=== PATIENT | male | born 1950 | race Caucasian/White ===

== ENCOUNTER → 2022-09-03 | Outpatient (CLI) | payer MEDICARE, SELFPAY ==
--- NOTE | 2022-09-03 | IMM_PTH ---
PATIENT: JONAS SUAREZ LOC: [facility] U#:[id number] AGE/SX: 72/M ROOM: RE09/03/[address]: Dr. Ramirez Mckeon MD : 1950 BED: DIS: 09/03/2022 SPEC #: [id number] RECD: 09/05/22 13:20 STATUS: ZAY RESharad #: [id number] MÓNICA: 09/03/22 00:[address]: Ramirez Mckeon DEPT: IMMUNOHISTOCHEMISTRY RECD BY: Isha Cristina Tissues: A - PROSTATE RIGHT Procedures: P40 (add) 34BE12 (initial) PHYSICIAN & INSTITUTION [place] [id number] SPECIMEN INFORMATION: Tissue Source: A - Right prostate, apex, core biopsy Clinical Info: Elevated PSA Specimen Number: [id number] CPT code: 94504, 50115 METHODOLOGY: Deparaffinized sections of prefer/formalin-fixed tissue or PAP/DQ stained slides are incubated with monoclonal/polyclonal antibodies/oligonucleotide probes. Localization is made via biotin free immunoperoxidase method. Appropriate controls are performed and reacted as expected. Results on target cell population are indicated in the following table: RESULTS: ANTIBODY / CLONE RESULT Block A P40 (BC28) negative 34BE12 (34BE12) negative These tests were developed and their performance characteristics determined by [facility]. They may not have been cleared or approved by the U.S. Food and Drug Administration. The FDA has determined that such clearance or approval is not necessary. The above immunohistochemical/dualISH markers are ordered and reviewed by the Pathologist. INTERPRETATION: A. Right prostate, apex, core biopsy: Adenocarcinoma. LAZARO:maria t 09/06/2022
--- NOTE | 2022-09-03 08:00 | PROSBIL_PTH ---
PATIENT: JONAS SUAREZ LOC: [facility] U#:[id number] AGE/SX: 72/M ROOM: RE09/03/[address]: Dr. Ramirez Mckeon MD : 1950 BED: DIS: 09/03/2022 SPEC #: [id number] RECD: 09/03/22 16:25 STATUS: ZAY ANNE-MARIE #: [id number] MÓNICA: 09/03/22 08:[address]: Ramirez Mckeon DEPT: SURGICAL PATHOLOGY RECD BY: Lulu Frias Tissues: A - PROSTATE RIGHT B - PROSTATE RIGHT C - PROSTATE RIGHT D - PROSTATE LEFT E - PROSTATE LEFT F - PROSTATE LEFT Procedures: PROSTATE BX HEADER OPERATION: Prostate biopsy PRE-OP DIAGNOSIS: Elevated PSA TISSUE SUBMITTED: A - Right apex, B - Right mid, C - Right base, D - Left apex, E - Left mid, F - Left base MICROSCOPIC DIAGNOSIS A. Right prostate, apex, core biopsy: Prostatic adenocarcinoma. Paragon grade: 4+4=8 Number of cores involved: 1/1 Proportion of tissue involved: ~60% Perineural invasion: Not identified. Greatest tumor length: 0.8 cm See comment. B. Right prostate, mid, core biopsy: Prostatic adenocarcinoma. Paragon grade: 5+4=9 Number of cores involved: 1/1 Proportion of tissue involved: >95% Perineural invasion: Not identified. Greatest tumor length: 1 cm See comment. C. Right prostate, base, core biopsy: Prostatic adenocarcinoma. Mitchell grade: 3+4=7 Number of cores involved: 1/1 Proportion of tissue involved: >95% Perineural invasion: Not identified. Greatest tumor length: 1.2 cm D. Left prostate, apex, core biopsy: Prostatic tissue, negative for malignancy. E. Left prostate, mid, core biopsy: Prostatic tissue, negative for malignancy. F. Left prostate, base, core biopsy: Prostatic tissue, negative for malignancy. Focal mild chronic inflammation. SJ:maria t 09/05/2022 COMMENT A. Immunohistochemistry ([id number]) supports the above diagnosis. B. Tertiary pattern 3 is also noted. Case has been reviewed in consultation with Dr. Giron who concurs with the above diagnosis. IDC:AM MICROSCOPIC DESCRIPTION Slides are reviewed. GROSS DESCRIPTION A - Received is one container designated prostate, right apex. The specimen consists of one elongated fragment of light price-white soft tissue measuring 1.5 cm in length and 0.1 cm in diameter. The specimen is totally submitted in one cassette. B - Received is one container designated prostate, right mid. The specimen consists of one elongated fragment of light price-white soft tissue measuring 1.5 cm in length and 0.1 cm in diameter. The specimen is totally submitted in one cassette. C - Received is one container designated prostate, right base. The specimen consists of one elongated fragment of light price-white soft tissue measuring 1.5 cm in length and 0.1 cm in diameter. The specimen is totally submitted in one cassette. D - Received is one container designated prostate, left apex. The specimen consists of one elongated fragment of light price-white soft tissue measuring 1.5 cm in length and 0.1 cm in diameter. The specimen is totally submitted in one cassette. E - Received is one container designated prostate, left mid. The specimen consists of one elongated fragment of light price-white soft tissue measuring 1.5 cm in length and 0.1 cm in diameter. The specimen is totally submitted in one cassette. F - Received is one container designated prostate, left base. The specimen consists of one elongated fragment of light price-white soft tissue measuring 1.5 cm in length and 0.1 cm in diameter. The specimen is totally submitted in one cassette. / AM:maria t 09/04/2022 TC:0 CPT: G0146
== END | disposition home or self-care (01) ==
PROVIDERS: Visit Provider Urology
DX: C61 Malignant neoplasm of prostate (principal)
CPT/HCPCS: 88305; 88341; 88342; G0416

== ENCOUNTER → 2022-10-02 | Outpatient (CLI) | payer MEDICARE, SELFPAY ==
--- NOTE | 2022-10-02 09:30 | NM_ITS ---
CLINICAL: 72-year-old male with history of carcinoma of the prostate. WHOLE BODY 99m Tc MDP RADIONUCLIDE BONE SCINTIGRAPHY COMPARISON: None available FINDINGS: Following the intravenous administration of 25.0 mCi of 99m Tc MDP, whole body bone images reveal: 1. Increased radiopharmaceutical concentration is defined in the acromioclavicular and sternoclavicular compartments of both shoulders, the knees bilaterally, the right midfoot, the right ankle, the third and fifth lumbar vertebra both anteriorly and posteriorly on the left and right respectively. 2. The remaining skeletal structures are scintigraphically unremarkable with normal-appearing renal images and urinary bladder activity identified. NM/Bone Scan Whole Body IMPRESSION: 1. The increase in tracer concentration identified in the bilateral shoulder and knees, the right midfoot, the right ankle, the lumbar spine is commensurate with degenerative arthritis. 2. There is no definitive scintigraphic evidence of diffuse axial skeletal metastatic disease. Electronically Signed: Billy Blas, at 23:10 EST ,
== END | disposition home or self-care (01) ==
LOC: NM 09:28
PROVIDERS: PCP Student in an Organized Health Care Education/Training Program; Referring Provider Urology; Visit Provider Urology
DX: C61 Malignant neoplasm of prostate (principal)
CPT/HCPCS: 78306; A9503

== ENCOUNTER 2022-10-30 09:29 | Day surgery (SDC) | payer MEDICARE, SELFPAY ==
[2022-10-30] VITALS (7 sets, daily range): BP systolic 110–144; BP diastolic 66–75; PULSE 58–70; RESP 14–16; TEMP 36.3–36.4; O2SAT 95–98; BMI 25.2
[2022-10-30] MEDS: Lactated Ringers 1,000 ML 15 ML IV (09:55)
[2022-10-30] MEDS: Cefazolin 2 GM in 0.9% Normal Saline 100 ML IV (11:37)
--- NOTE | 2022-10-30 11:42 | HP.PCM_ITS ---
HPI - General HPI Narrative JONAS SUAREZ, is a 72 M who presents for placement of gold markers and spacer gel for treatment for prostate cancer PFSH Medical History Abnormal transrectal ultrasound of prostate Allergic rhinitis Anxiety Arthritis Back pain Bipolar disorder Blackout Blood type A+ Bronchitis Cancer Carpal tunnel syndrome Depression Elevated PSA Essential hypertension Former smoker Gastric reflux Generalized anxiety disorder GERD (gastroesophageal reflux disease) History of echocardiogram Injury of head and neck Lymphoma Micturition frequency Nephrolithiasis Nocturia Nodular prostate without lower urinary tract symptoms Pneumonia Shingles Skin cancer Unspecified hearing loss Unspecified visual loss Urinary incontinence Wears dentures Wears glasses Home Medications ascorbic acid (vitamin C) 500 mg capsule 500 mg PO DAILY 09/30/22 [History Last Taken Unknown] escitalopram oxalate 10 mg tablet 10 mg PO DAILY 09/30/22 [History Last Taken Unknown] tamsulosin 0.4 mg capsule (Flomax) 0.4 mg PO DAILY 09/30/22 [History Last Taken Unknown] psyllium husk 0.4 gram capsule (Metamucil) 0.4 g PO DAILY 10/22/22 [History Last Taken Unknown] turmeric 400 mg capsule 400 mg PO DAILY 10/22/22 [History Last Taken Unknown] Allergy/AdvReac Type Severity Reaction Status Date / Time contrast dye Allergy Unknown PT UNSURE Uncoded 10/30/22 09:50 OF REACTION Family History Father , age 74 No problems noted. Mother , age 99 Heart disease CHF Perforated sigmoid colon colostomy placed, ultimately shortly after. Brother , age 47 CAD (coronary artery disease) Sister , age 60 No problems noted. 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 ) Smoking Status: Former smoker Tobacco: How many years used: 6 how long ago did patient quit smokin years alcohol intake: former substance use type: does not use caffeine: No what type of physical activity do you participate in: walking Vital Signs Vital Signs Vital Signs: 10/30/22 10:06 10/30/22 10:06 Temperature 97.5 F L Temperature Source Temporal Pulse Rate 70 Respiratory Rate 16 Respiratory Pattern Normal Blood Pressure 128/75 H Blood Pressure Mean 92 Blood Pressure Source Monitor Blood Pressure Position Semi-Fowlers Blood Pressure Location Left Arm Pulse Ox 97 Oxygen Delivery Method Room Air Weight Weight: 73 kg Body Mass Index (BMI) 25.2
[2022-10-30] MEDS: Lidocaine 1% (30 ml sdv) 30 ML Vial (11:43)
--- NOTE | 2022-10-30 11:43 | DCINST_ITS ---
Discharge Instructions Diet Discharge Diet: No restrictions Follow Up Care Please Follow Up With: Ramirez Mckeon MD Test Results: Test results from this visit will be discussed in further detail at your follow- up appointment, if applicable. Discharge Plan Admission Primary Reason for Your Visit: gold markers Attending Provider: Ramirez Mckeon Primary Care Provider: Mirna Tinoco Discharge Orders/Prescriptions Prescriptions: Continued tamsulosin [Flomax] 0.4 mg capsule 0.4 mg PO DAILY escitalopram oxalate 10 mg tablet 10 mg PO DAILY ascorbic acid (vitamin C) 500 mg capsule 500 mg PO DAILY psyllium husk [Metamucil] 0.4 gram Capsule 0.4 g PO DAILY turmeric 400 mg Capsule 400 mg PO DAILY Referrals / Follow Up: Mirna Tinoco MD [Primary Care Provider] - Disposition Disposition (needs filled in before D/C Order can be placed): Home, Self Care
--- NOTE | 2022-10-30 11:43 | PCM.OPRPT ---
Report of Operation Date of Procedure: 10/30/22 Pre-Operative Diagnosis: Prostate cancer Post-Operative Diagnosis: Same Surgery/Procedure Performed:: Placement of gold markers and spacer organ at risk matrix Description of Surgical Findings:: In the preoperative area I reviewed with the patient how the procedure is done we talked about the risk of the procedure including the risk of infection, bleeding, migration of the spacer gel, the patient is planning to have radiation to the prostate he understands that the spacer gel has demonstrated benefit in reducing the risk of toxicity from the ration radiation to the rectum but there is no guarantees that this spacer gel will prevent any serious complications or toxicity to the rectum or bowels. After reviewing this with the patient and his family organ to proceed with placement of a spacer gel matrix. Patient was taken back to the operating room after smooth induction of anesthesia he was placed supine on the table. The genitals and perineum were prepped and draped in usual sterile fashion. I then introduced a biplanar ultrasound probe into the rectum and performed ultrasonography and identified the Denonvilliers' fascia the prostate mid base and apex and seminal vesicles. The spacer gel mix was then prepared on the back table per manufactures instruction. Under ultrasound guidance in the midline perineum a bevel needle down we advanced through the perineum below the prostate into the space of Denonvilliers' fascia. This space which could be identified by ultrasound with a bright white layer between the prostate and the rectum. I then injected a puff of normal saline to identify the space further. After I confirmed that the needle was in the correct space in the mid prostate and the space of Denonvilliers' fascia between the rectum and the prostate. Then over the course of 15 seconds the gel matrix was injected slowly there was nice separation between the prostate and the rectum at the gel matrix was injected. The position of the gel matrix was confirmed by ultrasound. Then the injection needle was removed intact. The penis and testicles were prepped and draped in usual sterile fashion, ultrasound probe was placed into the rectum and biplanar ultrasound was performed on the prostate. Identified the base mid and apex of the prostate identified the transition zone prostate. Then using a needle the first parachute marker was placed into the right base of the prostate, the second parachute marker was placed in the left base of the prostate, and the third core marker was placed in the right apex of the prostate after all 3 markers were placed the placement of the markers were confirmed by ultrasonography. Surgeon: Ramirez Mckeon Type of Anesthesia: MAC Admit VTE Documentation VTE Present on Admission: No VTE Mechan Device Prophylaxis: SCD's VTE Pharm Prophylaxis ordered?: No
== END 2022-10-30 12:49 | disposition home or self-care (01) ==
LOC: SDC 09:31 → AC 09:32
PROVIDERS: PCP Student in an Organized Health Care Education/Training Program; Referring Provider Urology; Visit Provider Urology
PROC: (CPT 55874; principal; 2022-10-30 11:10)
DX: C61 Malignant neoplasm of prostate (principal); F31.9 Bipolar disorder, unspecified; N40.3 Nodular prostate with lower urinary tract symptoms; R35.1 Nocturia; R32 Unspecified urinary incontinence; R35.0 Frequency of micturition; I10 Essential (primary) hypertension; F41.1 Generalized anxiety disorder; K21.9 Gastro-esophageal reflux disease without esophagitis; Z79.899 Other long term (current) drug therapy; Z87.891 Personal history of nicotine dependence
CPT/HCPCS: 55874; 55876; 00902; J7120; A4648

== ENCOUNTER → 2022-11-04 | Outpatient (CLI) | payer MEDICARE, SELFPAY ==
--- NOTE | 2022-11-04 10:56 | MRI_ITS ---
MR Prostate WO/W Contrast 11/04/2022 11:45 AM COMPARISON: None CLINICAL HISTORY: 72 yo man with prostate cancer TECHNIQUE: Axial T1-weighted and high-resolution axial T2-weighted MR images of the pelvis were obtained. Images were acquired for planning of radiation therapy. MRI/Pelvis W/WO Contrast IMPRESSION: 1) MR imaging scan done for planning of radiation therapy of prostate cancer. 2) Heterogeneous appearance of the gland is at least in part due to the known prostate cancer, as well as being consistent with benign prostatic hyperplasia. 3) 1.9 x 1.3 x 2.4 cm PI-RADS 5 lesion in the right posterolateral peripheral zone at mid gland. No obvious gross extension beyond the capsule, however there is likely microcapsular extension laterally. 4) Prominent 4 mm right periprostatic lymph node. 5) Likely involvement of the right seminal vesicle. Normal left seminal vesicle. Normal bladder. Normal bones. Electronically Signed: Rigo Lopez MD at 17:43 EST ,
[2022-11-04 11:55] LABS: CREATININE FINGERSTICK < 0.9 mg/dL (0.70-1.30); EGFR FINGERSTICK > 60.0000 mL/min (>60)
== END | disposition home or self-care (01) ==
LOC: MRI 10:55
PROVIDERS: PCP Student in an Organized Health Care Education/Training Program; Referring Provider Student in an Organized Health Care Education/Training Program; Visit Provider Student in an Organized Health Care Education/Training Program
DX: Z01.812 Encounter for preprocedural laboratory examination (principal); C61 Malignant neoplasm of prostate
CPT/HCPCS: 72197; A9575